=== PATIENT | male | born 1935 | race Caucasian/White ===

== ENCOUNTER → 2017-01-02 | Outpatient (CLI) | payer MEDICARE, OTHER | LOC: HEART 5 08:36 | DX: R00.1 Bradycardia, unspecified (principal); R55 Syncope and collapse ==

== ENCOUNTER → 2017-01-22 | Outpatient (CLI) | payer MEDICARE, OTHER | LOC: LAB 09:07 | PROVIDERS: Internal Medicine Nephrology | DX: N18.3 Chronic kidney disease, stage 3 (moderate) (principal); M47.22 Other spondylosis with radiculopathy, cervical region; R80.9 Proteinuria, unspecified; M47.812 Spondylosis without myelopathy or radiculopathy, cervical region | CPT/HCPCS: 36415; 72040; 80048 ==

== ENCOUNTER → 2017-03-23 | Outpatient (CLI) | payer MEDICARE, OTHER | LOC: LAB 08:49 | PROVIDERS: Internal Medicine Nephrology | DX: N18.3 Chronic kidney disease, stage 3 (moderate) (principal); R80.9 Proteinuria, unspecified | CPT/HCPCS: 36415; 80053; 82043; 82570 ==

== ENCOUNTER → 2017-04-16 | Outpatient (CLI) | payer MEDICARE, OTHER | LOC: LAB 09:43 | PROVIDERS: Internal Medicine Nephrology | DX: N18.3 Chronic kidney disease, stage 3 (moderate) (principal) | CPT/HCPCS: 36415; 80048 ==

== ENCOUNTER → 2021-03-04 | Outpatient (CLI) | payer MEDICARE, OTHER ==
[~2021-03-04] MED LIST: ZOFRAN4 MG PO
== END ==
LOC: KOH-I 15:08
DX: S82.61XD Displaced fracture of lateral malleolus of right fibula, subsequent encounter for closed fracture with routine healing (principal)
CPT/HCPCS: 73700

== ENCOUNTER → 2022-05-11 | Outpatient (CLI) | payer MEDICARE, OTHER | LOC: HEART 5 09:11 | DX: I25.10 Atherosclerotic heart disease of native coronary artery without angina pectoris (principal); R00.1 Bradycardia, unspecified; R55 Syncope and collapse; I08.1 Rheumatic disorders of both mitral and tricuspid valves | CPT/HCPCS: 93306 ==

== ENCOUNTER → 2022-07-05 | Outpatient (CLI) | payer MEDICARE, OTHER ==
[~2022-07-05] MED LIST changes: +AMLODIPINE BESY10 MG PO; +ASPIRIN81 MG PO; +CLEOCIN HCL300 MG PO; +CLONAZEPAM1 MG PO; +DONEPEZIL HCL5 MG PO; +ELIQUIS2.5 MG PO; +FISH OIL 11600 MG/5 PO; +HYDRALAZINE HCL25 MG PO; +HYDROCODON-ACE1 EAC2 PO; +LEVOFLOXACIN500 MG PO; +LOPRESSOR 25 MG25 MG PO; +SPIRONOLACTONE25 MG PO; +VITAMIN C500 M4 PO; +VITAMIN D325 MCG PO; +ZYLOPRIM 100 M100 MG PO
[2022-07-05 13:54] LABS: HEMOGLOBIN 12.2 gm/dl (14.0-17.5); RED BLOOD COUNT 3.81 M/UL (4.20-5.50); WHITE BLOOD COUNT 6.9 K/UL (4.5-11.0)
== END ==
LOC: LAB 12:56
PROVIDERS: Internal Medicine Cardiovascular Disease
DX: Z01.818 Encounter for other preprocedural examination (principal); I49.5 Sick sinus syndrome; I25.10 Atherosclerotic heart disease of native coronary artery without angina pectoris; R55 Syncope and collapse
CPT/HCPCS: 36415; 71046; 80048; 85025

== ENCOUNTER 2022-07-07 10:00 | Outpatient (CLI) | payer MEDICARE, OTHER ==
[~2022-07-07] VITALS: Ht 188 cm; Wt 75.1 kg
[~2022-07-07 10:00] MED LIST changes: -AMLODIPINE BESY10 MG PO; -ASPIRIN81 MG PO; -CLEOCIN HCL300 MG PO; -CLONAZEPAM1 MG PO; -DONEPEZIL HCL5 MG PO; -ELIQUIS2.5 MG PO; -FISH OIL 11600 MG/5 PO; -HYDRALAZINE HCL25 MG PO; -HYDROCODON-ACE1 EAC2 PO; -LEVOFLOXACIN500 MG PO; -LOPRESSOR 25 MG25 MG PO; -SPIRONOLACTONE25 MG PO; -VITAMIN C500 M4 PO; -VITAMIN D325 MCG PO; -ZYLOPRIM 100 M100 MG PO
[2022-07-07] MEDS ORDERED: HYDRALAZINE HCL25 MG PO (10:42)
[2022-07-07] MEDS ORDERED: ELIQUIS2.5 MG PO (10:43)
[2022-07-07] MEDS ORDERED: ZYLOPRIM 100 M100 MG PO (10:47)
[2022-07-07] MEDS ORDERED: HYDROCODON-ACE1 EAC2 PO (10:48)
[2022-07-07] MEDS ORDERED: CLONAZEPAM1 MG PO (10:48)
[2022-07-07] MEDS ORDERED: DONEPEZIL HCL5 MG PO (10:49)
[2022-07-07] MEDS ORDERED: AMLODIPINE BESY10 MG PO (10:49)
[2022-07-07] MEDS ORDERED: ASPIRIN81 MG PO (10:50)
[2022-07-07] MEDS ORDERED: FISH OIL 11600 MG/5 PO (10:50)
[2022-07-07] MEDS ORDERED: SPIRONOLACTONE25 MG PO (10:51)
[2022-07-07] MEDS ORDERED: VITAMIN C500 M4 PO (10:52)
[2022-07-07] MEDS ORDERED: VITAMIN D325 MCG PO (10:53)
[2022-07-07] MEDS ORDERED: LOPRESSOR 25 MG25 MG PO (16:11)
[2022-07-07] MEDS ORDERED: CLEOCIN HCL300 MG PO (16:11)
[2022-07-07] MEDS ORDERED: LEVOFLOXACIN500 MG PO (16:11)
== END 2022-07-08 11:45 | disposition home or self-care (01) ==
LOC: CATH 10:00 → PROG CARE 16:50 → CATH 07-08 11:45
DX: I49.5 Sick sinus syndrome (principal); I25.10 Atherosclerotic heart disease of native coronary artery without angina pectoris; I48.0 Paroxysmal atrial fibrillation; I11.0 Hypertensive heart disease with heart failure; I50.31 Acute diastolic (congestive) heart failure; E78.5 Hyperlipidemia, unspecified; M10.9 Gout, unspecified; Z95.2 Presence of prosthetic heart valve; Z95.1 Presence of aortocoronary bypass graft; Z79.82 Long term (current) use of aspirin
CPT/HCPCS: 33208; 71045; 93005; 99152; 99153; C1785; C1898; J1644; J2250; J3010; J3370; J7040; J7050; J7070